=== PATIENT | female | born 1945 | race Caucasian/White ===

== ENCOUNTER 2021-07-06 09:45 | Outpatient (CLI) | payer MEDICARE, SELFPAY ==
--- NOTE | 2021-07-06 10:59 | ECG_ITS ---
Measurements Intervals [place] Rate: 62 P: 49 SD: 168 QRS: 7 QRSD: 93 T: 26 QT: 416 QTc: 423 Interpretive Statements SINUS RHYTHM MINIMAL Q WAVES- HIGH LATERAL LEADS BASELINE ARTIFACT- I, II, III, AVR, AVL, AVF, V4-V6 BORDERLINE ECG Electronically Signed On 07-06-2021 15:22:55 RADIOSONDE OPERATOR by Romulo William D.O.
[2021-07-06 11:34] LABS: Basophils Absolute Auto 0.1 K/mm3 (0.0-0.1); Basophils Percent Auto 0.8 % (0.2-1.2); Eosinophils Absolute Auto 0.2 K/mm3 (0-0.3); Eosinophils Percent Auto 2.4 % (0-4.4); Hemoglobin 13.5 g/dL (12.0-15.0); Immature Granulocyte Absolute 0.03 K/mm3 (0.00-0.031); Immature Granulocyte Percent A 0.3 % (0-0.5); Lymphocytes Absolute Auto 2.47 K/mm3 (0.9-3.2); Lymphocytes Percent Auto 27.4 % (18.3-44.2); Mean Corpuscular HGB Conc 32.1 g/dl (32-36); Mean Corpuscular Hemoglobin 30.3 pg (26-34); Mean Corpuscular Volume 94.2 fl (80-100); Mean Platelet Volume 11.7 fl (7.4-10.4); Monocytes Absolute Auto 0.6 K/mm3 (0.1-0.6); Monocytes Percent Auto 6.9 % (2.6-8.5); Neutrophils Absolute Auto 5.6 K/mm3 (1.3-6.7); Neutrophils Percent Auto 62.2 % (45.5-73.1); Platelet Count Result 286 k/mm3 (150-375); Red Blood Count 4.46 M/mm3 (4.2-5.4); Red Cell Distribution Width 13.5 % (11.5-14.5)
[2021-07-06 11:45] LABS: INR 0.9; Prothrombin Time 12.3 Seconds (11.1-14.7)
[2021-07-06 11:46] LABS: Partial Thromboplastin Time 28.6 SECONDS (22.3-36.8)
[2021-07-06 11:48] LABS: Alanine Aminotransferase 18 U/L (4-35); Albumin Level 4.7 g/dL (3.5-5.1); Alkaline Phosphatase 62 U/L (38-126); Anion Gap 9 mmol/L (8-16); Aspartate Amino Transferase 28 U/L (14-36); Bilirubin,Total 0.6 mg/dL (0.2-1.3); Blood Urea Nitrogen 20 mg/dL (7-17); Calcium 9.9 mg/dL (8.4-10.2); Carbon Dioxide 29 mmol/L (22-30); Chloride 103 mmol/L (98-107); Estimated Glomerular Filt Rate > 60; Glucose 89 mg/dL (65-110); Potassium 4.2 mmol/L (3.4-5.0); Sodium 141 mmol/L (137-145)
== END 2021-07-06 09:46 | disposition home or self-care (01) ==
LOC: ANHSURGERY 09:50
PROVIDERS: PCP Family Medicine; Visit Provider Urology
DX: Z01.818 Encounter for other preprocedural examination (principal); N81.3 Complete uterovaginal prolapse; I10 Essential (primary) hypertension; Z51.81 Encounter for therapeutic drug level monitoring; Z79.899 Other long term (current) drug therapy
CPT/HCPCS: 36415; 80053; 85025; 85610; 85730; 86850; 86900; 86901; 87086; 87088; 93005

== ENCOUNTER 2021-07-16 00:09 | Day surgery (SDC) | payer MEDICARE, SELFPAY ==
[2021-07-06 10:16] VITALS: BP 140/77; PULSE 61; RESP 16; TEMP 37; O2SAT 98; BMI 24.7
--- NOTE | 2021-07-06 10:36 | PC.NURSE ---
Report to the Outpatient Waiting Room, entrance under the green pavilion located off [facility], at time ____6:00AM___ on date _07/16/21____. OR Time: ____7:30AM____. - You and your visitor will be asked a series of questions to screen for COVID 19 for your protection. - A mask is required within the hospital. - Only one visitor is allowed at this time. Patient visitors will be guided where to wait when not with patient. Preoperative COVID Testing Requirements: No COVID Test needed if: (proof is required; if not received patient will have Rapid Test prior to entry) - Patient has received COVID Vaccine at least 14 days prior to procedure date or - Patient has positive COVID test result within last 90 days of surgery date. COVID Test needed if above criteria is not met If not COVID vaccinated a COVID test must be conducted within 72 hours of surgery and patient is asked to isolate self from time of testing until procedure. You will go to the [facility] for your COVID testing. The [facility] site is located at the corner of [address] [facility]. You will only be called if COVID results are positive and your surgeon may reschedule your elective surgery date. Patients may have clear liquids (water, carbonated beverages, clear teas, apple juice) until 3 hours prior to surgery with a maximum of 20 ounces. - No food from midnight until time of surgery 4:30AM - Infants may have breast milk until 4 hours before surgery, formula 6 hours prior to surgery. - Children will be allowed to drink immediately following surgery. If applicable, please bring a bottle or sippy cup to assist with drinking. Juice, water, soda, and popsicles are readily available. For infants on formula, please bring formula the day of surgery. Pacifiers are allowed. Take the following medications with a SIP of water the morning of surgery: ____BUSPIRONE,METOPROLOL, SEREVENT DISKUS, ALBUTEROL INHALER NEEDED (BRING) Medications to discontinue per physician ALL VITAMINS/SUPPLEMENTS 3 DAYS PRE-OP Date to take last dose___07/13/21 Please no make-up, nail maori, hairspray, perfume, deodorant, or body powder the day of surgery. No jewelry (including any body piercings) or valuables the day of surgery, leave them at home. Please take a shower or bath the night before, or the morning of, surgery with an antibacterial soap. Wear comfortable, loose fitting clothing. Children are encouraged to wear pajamas. - Jewelry must be removed prior to entering the operating room. Rings and piercings that are not removed may be cut off. - The hospital will not accept responsibility for valuables. - Please leave all valuables, including medications, at home the day of surgery. If you are going home after surgery, a licensed driver wheelchair must drive you home. - NO public transportation without another adult. - We recommend that an adult stay with you for 24 hours following discharge. - We also recommend that you do not drive, make important decision, drink alcoholic beverages, or take any drugs that were not prescribed by your health care provider for at least 24 hours after your discharge time. For Pediatric surgeries, we recommend two adults accompany the child home (only one inside the building at this time). Follow any additional instructions given to you from your surgeon. Telephone instructions given to ___PATIENT & DAUGHTER and asked if any additional questions and then verbalized understanding. Patient advised to call surgeon office or pre surgery nurse liaison [phone] if any additional questions.
--- NOTE | 2021-07-08 14:20 | PM.IMHP ---
H&P: HPI History of Present Illness Date/Time: 07/08/21 14:20 76 yo with Uterine prolpase and FLOR. Has a pessary Chief Complaint: POP/FLOR Review of Systems Review of Systems: All systems reviewed & are unremarkable except as noted in HPI and below PMFSH Social History Social History Smoking status: Never smoker Substance use: never Spiritual care concerns: No Meds Home Medications and Allergies Home Medications Medication Instructions Recorded Confirmed Type albuterol sulfate 2 puff INHALATION Q4-6H PRN 07/06/21 07/06/21 History atorvastatin 10 mg PO DAILY 07/06/21 07/06/21 History buspirone 10 mg PO BID 07/06/21 07/06/21 History donepezil 10 mg PO HS 07/06/21 07/06/21 History lansoprazole 30 mg PO QAM 07/06/21 07/06/21 History lisinopril 20 mg PO QAM 07/06/21 07/06/21 History metoprolol tartrate 50 mg PO BID 07/06/21 07/06/21 History mometasone [Nasonex] 2 spray INTRANASAL DAILY PRN 07/06/21 07/06/21 History multivitamin [Multi-Vitamin] 1 tablet PO DAILY 07/06/21 07/06/21 History salmeterol [Serevent Diskus] 1 inh INHALATION BID 07/06/21 07/06/21 History Allergies Allergy/AdvReac Type Severity Reaction Status Date / Time amoxicillin Allergy Hives Verified 07/06/21 10:07 cephalexin [From Keflex] Allergy Hives Verified 07/06/21 10:07 Sulfa (Sulfonamide Allergy Hives Verified 07/06/21 10:07 Antibiotics) Exam Narrative: Sylva at +5 Assessment and Plan Assessment and plan (1) Uterine prolapse: Code(s): N81.4 - Uterovaginal prolapse, unspecified Status: Acute Assessment and Plan: robotic sacral Colpopexy (2) FLOR (stress urinary incontinence, female): Code(s): N39.3 - Stress incontinence (female) (male) Status: Acute Assessment and Plan: urethral sling
--- NOTE | 2021-07-15 11:05 | PM.IMHP ---
H&P: HPI History of Present Illness Date/Time: 07/15/21 11:05 Chief Complaint: pelvic organ prolapse Narrative: 76 yo with symptomatic pelvic organ prolapse. Pt was referred to my by Dr. Hinton for co-management of advanced pelvic organ prolapse. 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 Pt complains of bothersome pressure and pelvic pain. Pt's medical history complicated by HTN and dementia. Pt was fitted with Gelhorn pessary to bridge prior to surgery. Review of Systems Cardiovascular: Cardiovascular: Denies chest pain, Denies leg edema, Denies palpitations, Denies dyspnea and Denies dyspnea on exertion Respiratory: Respiratory: Denies cough, Denies dyspnea and Denies dyspnea on exertion Gastrointestinal: Gastrointestinal: Denies abdominal pain, Denies constipation, Denies diarrhea, Denies nausea and Denies vomiting Genitourinary: Genitourinary: Denies hematuria, Denies urinary frequency, Denies dysuria, Denies pelvic pain, Denies urinary incontinence and Denies vaginal discharge Neurologic: Reports system reviewed and no additional complaints, except as documented Psychiatric: Psychiatric: Reports no additional psychiatric complaints Endocrine: Endocrine: Denies palpitations PMFSH Social History Social History Smoking status: Never smoker Substance use: never Spiritual care concerns: No Meds Home Medications and Allergies Home Medications Medication Instructions Recorded Confirmed Type albuterol sulfate 2 puff INHALATION Q4-6H PRN 07/06/21 07/06/21 History atorvastatin 10 mg PO DAILY 07/06/21 07/06/21 History buspirone 10 mg PO BID 07/06/21 07/06/21 History donepezil 10 mg PO HS 07/06/21 07/06/21 History lansoprazole 30 mg PO QAM 07/06/21 07/06/21 History lisinopril 20 mg PO QAM 07/06/21 07/06/21 History metoprolol tartrate 50 mg PO BID 07/06/21 07/06/21 History mometasone [Nasonex] 2 spray INTRANASAL DAILY PRN 07/06/21 07/06/21 History multivitamin [Multi-Vitamin] 1 tablet PO DAILY 07/06/21 07/06/21 History salmeterol [Serevent Diskus] 1 inh INHALATION BID 07/06/21 07/06/21 History Allergies Allergy/AdvReac Type Severity Reaction Status Date / Time amoxicillin Allergy Hives Verified 07/06/21 10:07 cephalexin [From Keflex] Allergy Hives Verified 07/06/21 10:07 Sulfa (Sulfonamide Allergy Hives Verified 07/06/21 10:07 Antibiotics) Exam Const: General: no acute distress Eyes: EOM: EOMs intact bilaterally Neck: Neck: supple Thyroid: thyroid normal Chest: Breast/axilla inspection: normal inspection of the breasts Breast/axilla palpation: normal palpation of the breasts, normal palpation of the axillae and no axillary lymphadenopathy Resp: Effort & Inspection: normal respiratory effort Auscultation: clear to auscultation bilaterally Cardio: Rate: regular rate Rhythm: regular rhythm GI: Inspection: non-distended GI Palp: Yes Soft to palpation, No Tenderness to palpation present (GI) and No Guarding due to palpation present (GI) Auscultation: normal bowel sounds : General: No bladder normal to palpation External Female Exam: normal external appearance Speculum Exam - Vagina: normal vaginal discharge, vagina atrophic and No vaginal bleeding Speculum Exam - Cervix: normal appearance of the cervix and nontender Bimanual exam- vagina & uterus: No bladder normal to palpation and No Cervical tenderness present Bimanual Exam- Adnexa, other: other (Complete procidentia ) Skin: General skin exam: normal color and no rashes or lesions noted Neuro: General: patient oriented x3 Speech: normal speech Extrem: General: normal to inspection and no edema Psych: Mental Status: mental status grossly normal Affect: normal affect Assessment and Plan Assessment and plan (1) Uterine prolapse: Code(s): N81.4 - Uterovaginal prolapse, unspecified Status: Acute Assessment and Plan: Advanced symptomatic pelvic organ prola
[2021-07-16] VITALS (10 sets, daily range): BP systolic 101–137; BP diastolic 53–85; PULSE 63–100; RESP 12–18; TEMP 36.1–37; O2SAT 95–100
[2021-07-16] MEDS: LACTATED RINGERS 1,000 ML 30 ML IV CONT ×2 (06:25→10:19)
[2021-07-16] MEDS: ACETAMINOPHEN 500 MG TABLET 1000 MG PO (06:26)
[2021-07-16] MEDS: KETOROLAC 15 MG/ML VIAL (*BKC) IV PUSH ×2 (06:28→15:40)
--- NOTE | 2021-07-16 06:53 | WPDANESEPPF ---
Anes - Initial Pre Proc Eval Procedure: Operation Date: 07/16/21 07:30 Proposed Procedures p Robotic Sacrocolpopexy, Urethral Sling - Kevin Hinton MD s Robotic Assisted Supracervical Hysterectomy - Satya Rodriguez MD Date/Time: 07/16/21 06:53 Surgeon: Kevin Hinton MD Pre Op Diagnosis: complete uterovag prolapse, stress incont Patient Data Age: 76 Gender: F Height: 1.73 m Weight: 73.4 kg Last Vital Signs Temp 37.0 C 07/06/21 10:16 Pulse 61 07/06/21 10:16 Resp 16 07/06/21 10:16 BP 140/77 07/06/21 10:16 Pulse Ox 98 07/06/21 10:16 Allergies Allergy/AdvReac Type Severity Reaction Status Date / Time amoxicillin Allergy Hives Verified 07/16/21 06:50 cephalexin [From Keflex] Allergy Hives Verified 07/16/21 06:50 Sulfa (Sulfonamide Allergy Hives Verified 07/16/21 06:50 Antibiotics) Home Medications Medication Instructions Recorded Confirmed Type albuterol sulfate 2 puff INHALATION Q4-6H PRN 07/06/21 07/06/21 History atorvastatin 10 mg PO DAILY 07/06/21 07/16/21 History buspirone 10 mg PO BID 07/06/21 07/16/21 History donepezil 10 mg PO HS 07/06/21 07/16/21 History lansoprazole 30 mg PO QAM 07/06/21 07/16/21 History lisinopril 20 mg PO QAM 07/06/21 07/16/21 History metoprolol tartrate 50 mg PO BID 07/06/21 07/16/21 History mometasone [Nasonex] 2 spray INTRANASAL DAILY PRN 07/06/21 07/16/21 History multivitamin [Multi-Vitamin] 1 tablet PO DAILY 07/06/21 07/16/21 History salmeterol [Serevent Diskus] 1 inh INHALATION BID 07/06/21 07/16/21 History Patient hx anesthesia problems: none Family hx anesthesia problems: none Results Review: All pre-operative results and documents have been reviewed as part of the pre-operative evaluation. [facility] Past Medical History Medical History Anxiety Asthma Dementia Hyperlipidemia Hypertension Social History Social History Smoking status: Never smoker Substance use: never Living arrangements: alone Spiritual care concerns: No Anes - Eval Final PreProcedure Day of Procedure 07/16/21 06:53 Patient weight: normal Heart: regular rate and rhythm Lungs: clear to auscultation Airway: Mallampati scale class II Neurological: other (alert) Last oral intake: >/= 8 hours ASA classification: III Emergent: no Anesthetic plan: proceed Anesthesia type and monitoring: general ETT and standard monitoring Results Review: All pre-operative results and documents have been reviewed as part of the pre-operative evaluation. Informed Consent: The patient's anesthetic plan and its attendant risks and benefits were discussed with the patient/family/POA. Questions were solicited and answers provided to the satisfaction of the patient/family/POA.
--- NOTE | 2021-07-16 07:06 | WPDHPUPDATE1 ---
History and Physical Update Update Date/Time: 07/16/21 07:06 History and Physical has been reviewed, including an updated exam of the patient. There are NO changes in the patient's condition. Risks, benefits, and alternatives have been discussed and questions answered. Patient agrees to proceed with procedure.
--- NOTE | 2021-07-16 07:07 | WPDHPUPDATE1 ---
History and Physical Update Update Date/Time: 07/16/21 07:07 History and Physical has been reviewed, including an updated exam of the patient. There are NO changes in the patient's condition. Risks, benefits, and alternatives have been discussed and questions answered. Patient agrees to proceed with procedure.
[2021-07-16] MEDS: levoFLOXacin 500 MG/D5W 100 ML 500 MG/100 ML BAG 100 MG IVPB (07:21)
[2021-07-16] MEDS: metroNIDAZOLE 500 MG/ISO 100ML 500 MG/100 ML BAG 100 MG IVPB ×3 (07:38→21:54)
[2021-07-16] MEDS: LIDO 1%/EPINEPHRINE 1:100,000 50 ML VIAL INFILTRATE (08:12)
--- NOTE | 2021-07-16 08:34 | W.PM.PROC2 ---
Procedure Note - Detailed Date of Procedure 07/16/21 Pre-op Diagnosis complete uterovag prolapse, stress incont Post-op Diagnosis same Procedure Performed robotic assisted total laparoscopic supracervical hysterectomy and bilateral salpingectomy Surgeon Satya Rodriguez MD Anesthesia general Description of Procedure After the patient was appropriately consented she was taken to the operating room where she was transferred to the table in a dorsal supine position. General anesthesia was then induced with endotracheal intubation. The patient was transferred to a dorsal lithotomy position using adjustable yellow-fin stirrups. Her position was adjusted for appropriate support of her lower back and lower extremities. The patient was prepped and draped. A transurethral beaulieu catheter was place. A speculum was placed to help visualize the cervix. The anterior lip of the cervix was grasped with a tenaculum. An acorn manipulator was then placed in the uterus. Attention was then turned to the abdomen. Dr. Hinton proceeded with laparoscopic port placement and abdominal entry. The robot was then docked. The left fallopian tube was identified and followed to the fimbriae. The tube was then transected along the inferior mesosalpinx to the attachment to the uterine body. The left round ligament was then identified and ligated. The broad ligament was then dissected to separate the anterior and posterior aspects. The left utero-ovarian ligament and vessels were then ligated to free the left ovary from the uterus. The posterior aspect of the broad ligament was then skeletonized down to the level of the internal cervical os, mobilizing the ureter laterally. The anterior aspect of the broad ligament was then dissected down to the internal cervical os and a bladder flap was then created sharply. The ipsilateral uterine artery was skeletonized, bipolar cauterized and transected. A similar procedure was performed on the contralateral side, transecting the fallopian tube, transecting the round ligament, dissecting the broad ligament, completing the bladder flap, and skeletonizing, ligating, and dividing the uterine artery on this side. An EAA sizer was introduced into the vagina to help delineate the the borders of the cervix. A circumferential colpotomy using monopolar current in the mid cervix. The cervix was completely transected and the remaining cervical stump was coagulated with monopolar cautery. The uterine body and fallopian tubes were placed in the posterior cul de sac for later removal by Dr. Hinton. At this time, my portion of the procedure was completed. Please see Dr. Hinton's dictation for the remainder of the procedure.
--- NOTE | 2021-07-16 10:13 | W.PM.PROC2 ---
Procedure Note - Detailed Date of Procedure 07/16/21 Pre-op Diagnosis complete uterovag prolapse, stress incontinence Post-op Diagnosis same Procedure Performed Robotic assisted laparoscopic sacral colpopexy Urethral sling Cystoscopy Surgeon Kevin Hinton MD Anesthesia general Indications A woman with uterine prolapse as well as stress incontinence. She desires surgical correction. She is here for the above. She understands risks of bleeding, infection, diskitis, damage to surrounding organs, bowel injury, bowel obstruction, mesh related complications including exposure and extrusion, postoperative voiding dysfunction including incontinence and retention, continued stress incontinence, recurrent stress incontinence, need for ancillary procedures, dyspareunia, recurrence of prolapse, and other perioperative intraoperative postoperative complications. She agrees to proceed. Findings See below Description of Procedure She was correctly identified. Informed consent obtained. She from the operating room. She was given general anesthesia. She was given appropriate perioperative antibiotics. She was placed a low lithotomy position. Pressure points were padded. A time-out performed. I marked out the skin 3 fingerbreadths cephalad to the umbilicus. I anesthetized the skin. I incised the skin. I dissected down to the fascia. I grasped the fascia with Garrick clamps. I entered the fascia sharply in a Ramos type technique. I placed sutures for later fascial closure. I placed a midline trocar. I examined the abdomen. There is no sign of any injury. Under direct vision I placed 2 additional trocars in the right upper quadrant and 2 additional trocars the left upper quadrant. She was placed in steep Trendelenburg. The robot was docked. Her wash oil cooler operator completed their portion of the procedure. Please see that operative report for details. I then sat at the console. The Sizer in the vagina created plane on the anterior and posterior vaginal wall. I took great care not to injure the vagina, bladder, or rectum. I introduced the mesh into the abdomen. I sewed the anterior leaflet of mesh on the anterior vaginal wall. I sewed the posterior leaflet of mesh on the posterior vaginal wall. This was done with several sutures of 2 0 Hooper-Tyrone. I reflected the colon laterally. I opened the posterior peritoneum over the sacral promontory. I carried this into the cul-de-sac. I freed up the edges for later retroperitonealization. I located the anterior longitudinal ligament the sacrum. I cleaned off all fatty tissues. I then tensioned my mesh appropriately. I did a vaginal exam the bedside. I assured prolapse reduction without undue tension. There was retained minimal urethral mobility. I then sewed the proximal leaflet of mesh onto the anterior longitudinal ligament of the sacrum with several sutures of 2 0 Hooper-Tyrone. I then used a 2 0 Monocryl to completely and meticulously retroperitonealized all mesh. I allowed the colon to go back to its normal anatomic location. There is no sign of any impingement. The specimen was then removed. All ports removed. Fascia was tied down. Skin was closed with Monocryl and surgical glue. She was repositioned and prepped for urethral sling. I marked out the inner thigh incisions. I anesthetized the skin and made the incisions. I then anesthetized the anterior vaginal wall at the mid urethra. I made a 1 cm incision. I dissected out laterally taking great care not to injure the refilled vaginal wall. I passed the helical trocars. I did this 1st on the left and then on the right. This was done from the thigh incision towards the vaginal incision. Sling was connected to the trocars and brought out the thigh incision. I tensioned the sling appropriately. I cut and the plastic sheaths. I closed the incision with 2 0 Vicryl. I then performed cystoscopy. There was no tumors or surgical artifact. Guidewire
[2021-07-16] MEDS: KCL 20 MEQ/D5/0.45% SOD CHL 1,000 ML 100 ML IV CONT ×2 (11:42→21:53)
[2021-07-16 12:38] LABS: Estimated CRCL calculation 68 ml/min; Estimated Glomerular Filt Rate > 60
[2021-07-16] MEDS: busPIRone HCL 10 MG TABLET PO (18:29)
[2021-07-16] MEDS: METOPROLOL TARTRATE 50 MG TAB PO (18:29)
--- NOTE | 2021-07-16 21:33 | PCRCNOTE ---
Pt refused inhaler administration as well as other medications. Pt seems confused but states that she doesn't use an inhaler at home and also said, I don't trust you people anymore when asked about doing the inhaler. Nurse is aware. Inhaler left at nurses' station. Will try again on 07/17 to administer inhaler.
--- NOTE | 2021-07-16 22:50 | PC.NURSE ---
1909- Did assessment on patient. Pt was a little confused at times, but very pleasant. No complaints of pain. [id number]- Pt up in a chair. Tolerated well. Daughter, Denita, went home shortly after the patient got back in bed. Stated she will be back in the morning. 2029- Pt yelled out. Very confused. Asked several times where she was and why she was here. Tearful at times. Pt requested to call her daughter, Denita. I dialed the phone number on patient's cell phone. Pt spoke with daughter. 2032- I spoke with daughter. Denita states that she's never seen her this confused. States that she has seen her disoriented when she has had a UTI and requested that we send a urine specimen. 2039- Orders received from Dr. Rodriguez to send specimen for urine culture. 2099- Went in patient's room to check on her. Pt is very confused and agitated. Refusing to let me take a urine sample or scan her bracelet. Pt also is refusing her meds and SCDs. Attempted to calm patient. Pt continues to be agitated and confused.
[2021-07-17 00:40] VITALS: BP 105/68; PULSE 57; RESP 16; TEMP 37; O2SAT 98
[2021-07-17] MEDS: KETOROLAC 15 MG/ML VIAL (*BKC) IV PUSH (00:50)
[2021-07-17] MEDS: DONEPEZIL HCL 10 MG TABLET PO (00:50)
[2021-07-17] MEDS: ACETAMINOPHEN 325 MG TABLET 650 MG PO ×2 (00:50→11:37)
[2021-07-17 03:50] VITALS: BP 106/60; PULSE 65; RESP 16; TEMP 36.9; O2SAT 97
[2021-07-17] MEDS: metroNIDAZOLE 500 MG/ISO 100ML 500 MG/100 ML BAG 100 MG IVPB (05:53)
[2021-07-17 07:00] VITALS: BP 124/62; PULSE 64; RESP 16; TEMP 37.2; O2SAT 97
--- NOTE | 2021-07-17 07:08 | P.DS_ITS ---
DS: Admitting Diagnosis Discharge Date 07/17/21 Admitting Diagnosis pelvic organ prolapse urinary incontinence DS: Summary Hospital Course Hospital Course: Hannah Sharif was admitted after robotic assisted total laparoscopic hysterectomy and bilateral salpingectomy, sacral colpopexy, mid- urethral sling for complete procidentia. The above procedure was performed with no complications. She is doing well post op. She states her pain is well controlled with PO medications. She reports minimal bleeding. She is ambulating up to the chair. Her beaulieu catheter was removed. She is tolerating PO without N/V. She reports passing flatus. Status at Discharge Overall status at discharge: patient is progressing back to baseline Time Spent with Patient Time attestation: Total time spent providing and/or coordinating discharge services: Time spent: Less than 30 minutes Exam Const: General: comfortable and no acute distress Limitations: no limitations Resp: Effort & Inspection: normal respiratory effort Auscultation: clear to auscultation bilaterally Cardio: Rate: regular rate Rhythm: regular rhythm GI: Inspection: non-distended GI Palp: Yes Soft to palpation, Yes Tenderness to palpation present (GI) (milder tenderness to deep palpation) and No Guarding due to palpation present (GI) Auscultation: normal bowel sounds Other: incisions C/D/I covered with dermabond Urinary Catheter: Urinary Catheter: urine clear Skin: General skin exam: normal color Extrem: General: normal to inspection Psych: Mental Status: mental status grossly normal Affect: normal affect DS: Data Data Completed and Pending Pending studies at discharge: Pending at discharge 07/16/21 08:34 Surgical [PTH] Routine Labs on day of discharge: Labs from last 24 hours 07/16/21 12:10 Creatinine 0.60 L Estim Creat Clear Calc 68 Estimated GFR > 60 Discharge Plan Discharge Patient Disposition: Home, Self-Care Discharge Instructions: No lifting >20lb, exercise for 6 weeks No tub bath or pool for 2 weeks No intercourse for 6 weeks Patient Instructions: Laparoscopic Hysterectomy (DC) Stand Alone Forms: General Discharge Instructions Follow-up/Referrals: Kevin Hinton MD [Physician] - Satya Rodriguez MD [Physician] - (As scheduled) Discharge Medications: New docusate sodium [Colace] 100 mg capsule 100 mg PO BID Qty: 60 RF: 0 hydrocodone-acetaminophen 5-325 mg tablet 1 tablet PO Q6H PRN (Reason: pain) Qty: 20 RF: 0 Continued atorvastatin 10 mg tablet 10 mg PO DAILY RF: 0 donepezil 10 mg tablet 10 mg PO HS RF: 0 lisinopril 20 mg tablet 20 mg PO QAM RF: 0 buspirone 10 mg tablet 10 mg PO BID RF: 0 lansoprazole 30 mg capsule,delayed release(DR/EC) 30 mg PO QAM RF: 0 metoprolol tartrate 50 mg tablet 50 mg PO BID RF: 0 Serevent Diskus 50 mcg/dose blister with device 1 inh INHALATION BID RF: 0 mometasone [Nasonex] 50 mcg/actuation spray,non-aerosol 2 spray INTRANASAL DAILY PRN (Reason: Congestion) RF: 0 multivitamin Tablet 1 tablet PO DAILY RF: 0 albuterol sulfate 90 mcg/actuation HFA aerosol inhaler 2 puff INHALATION Q4-6H PRN (Reason: Dyspnea) RF: 0
[2021-07-17] MEDS: SALMETEROL XINAFOATE 50 MCG DISKUS 1 PUFF INHALATION (08:39)
[2021-07-17 08:40] LABS: Add Urine Microscopic? YES; Appearance Urine Clear (Clear); Bacteria Urine Trace /hpf; Bilirubin Urine Negative (Negative); Blood Urine 3+ (Negative); Color Urine Straw (Yellow); Glucose Urine UA Negative (Negative); Ketones Urine Negative (Negative); Leukocyte Esterase Ur 1+ LEU/UL (NEGATIVE); Mucus Urine Rare /lpf; Nitrate Urine Negative (Negative); Protein Urine Negative (Negative); RBC Urine 0-2 /hpf (0-2); Specific Grav Ur 1.005 (1.001-1.035); Squamous Epithelial Cell Urine Rare /hpf (Few); Urobilinogen Urine Negative mg/dL (<2.0)
[2021-07-17] MEDS: busPIRone HCL 10 MG TABLET PO (08:42)
[2021-07-17] MEDS: ATORVASTATIN 10 MG TABLET PO (08:42)
[2021-07-17 08:43] VITALS: PULSE 63
[2021-07-17] MEDS: lisinopriL 20 MG TABLET PO (08:43)
[2021-07-17] MEDS: METOPROLOL TARTRATE 50 MG TAB PO (08:43)
[2021-07-17] MEDS: PANTOPRAZOLE 40 MG TABLET PO (08:43)
[2021-07-17] MEDS: levoFLOXacin 500 MG TABLET PO (08:43)
[2021-07-17] MEDS: DOCUSATE SODIUM 100 MG CAPSULE PO (08:53)
[2021-07-17] MEDS: ENOXAPARIN 40 MG/0.4 ML SYRINGE SUB-Q (08:54)
--- NOTE | 2021-07-17 11:13 | WPDANESPN ---
Anes - Prog Note Post-Op Date/Time: 07/17/21 11:13 Cardiovascular status: normal Respiratory status: normal Airway patency: baseline Mental status: baseline Post-Op hydration status: normal Vital Signs: Last Vital Signs Temp 37.2 C 07/17/21 07:00 Pulse 63 07/17/21 08:43 Resp 16 07/17/21 07:00 BP 124/62 07/17/21 07:00 Pulse Ox 97 07/17/21 07:00 Pain Score (VAS): 0 I/O: Intake & Output 07/16/21 07/17/21 07/17/21 23:59 07:59 15:59 Intake Total 1100 400 Output Total 275 1150 200 Balance 825 -750 -200 Laboratory Tests 07/16/21 12:10 07/16/21 07/17/21 12:10 08:28 Creatinine 0.60 L Estim Creat Clear Calc 68 Estimated GFR > 60 Urine Color Straw Urine Appearance Clear Urine pH 7.0 Ur Specific [place] 1.005 Urine Protein Negative Urine Glucose (UA) Negative Urine Ketones Negative Ur Blood (Man) 3+ H Urine Nitrate Negative Urine Bilirubin Negative Urine Urobilinogen Negative Ur Leukocyte Esterase 1+ H Urine RBC 0-2 Urine WBC 4-6 H Ur Squamous Epith Cells Rare Urine Bacteria Trace Urine Mucus Rare Post-procedural complaints: none Patient Feedback: Patient satisfied with anesthetic care.
--- NOTE | 2021-07-17 13:35 | PCCCNOTE ---
Care Coordination Consult: Met with pt. and daughter Denita today during rounds. Pt. is alert and oriented at time of visit. Pt. has been living at home alone since her 2.5 years ago. Pt.'s other daughter assists at home by driving pt. to get groceries and other items since she was asked to stop driving 3 months ago. Pt.'s PMD has placed pt. on a medication for memory concerns three months ago, Denita confirms she is also due to start an additional medication this Friday, Memantine. Due to her memory deficits Denita has her set to move into the [facility] facility in [place]. She is set to move into her new apartment on 08/02. Denita reports pt. is doing much better this morning compared to yesterday evening. Denita also states that her sister will be staying with pt. nubia at home to assist and family will re-evaluate in the morning for more assistance. Provided private duty list to Denita for informational purposes. Also recommended that Denita contact the [facility] to see if they have a respite bed available for pt. to stay in until her apartment is ready to be moved into on 08/02. Pt. is independently walking around after her surgery, denies any mobility issues. Pt. and Denita deny any further case management needs.
== END 2021-07-17 12:22 | disposition home or self-care (01) ==
LOC: ANHSURGERY 07:23 → ANHOB2 11:27
PROVIDERS: Student in an Organized Health Care Education/Training Program; PCP Family Medicine; Visit Provider Urology
PROC: (CPT 57425; principal; 2021-07-16 07:30)
PROC: 0UT94ZZ Resection of Uterus, Percutaneous Endoscopic Approach (ICD-10-PCS; CPT 57425; 2021-07-16 07:30)
PROC: (CPT 57288; 2021-07-16 07:30)
DX: N81.3 Complete uterovaginal prolapse (principal); N39.3 Stress incontinence (female) (male); N80.0 Endometriosis of uterus; F05 Delirium due to known physiological condition; I10 Essential (primary) hypertension; E78.5 Hyperlipidemia, unspecified; F03.90 Unspecified dementia, unspecified severity, without behavioral disturbance, psychotic disturbance, mood disturbance, and anxiety; J45.909 Unspecified asthma, uncomplicated; F41.9 Anxiety disorder, unspecified; Z79.51 Long term (current) use of inhaled steroids
CPT/HCPCS: 57288; 57425; 58542; S2900; 36415; 80053; 81001; 82565; 85025; 85610; 85730; 86850; 86900; 86901; 87086; 87088; 88307; 93005; 99199; A9270; C1758; C1769; C1771; C1781; C9290; J1100; J1170; J1650; J1885; J1956; J2405; J2704; J2710; J3010; J3480; J7030; J7120